=== PATIENT | female | born 1990 | race African-American/Black ===

== ENCOUNTER 2017-08-16 09:07 | Inpatient (IN) | payer OTHER ==
[~2017-08-16] VITALS: Ht 154.9 cm; Wt 81.2 kg
[~2017-08-16 09:07] MED LIST: COLACE100 MG PO; IBUPROFEN600 M1 PO; LIORESAL 10MG T10 MG PO; MEDROL4 M2 PO; MOTRIN 600 MG600 MG PO; PERCOCET 325 MG1 TA2 PO; PERCOCET 5-3251 EACH PO; REGLAN10 M1 PO; TRAMADOL50 MG PO; ZOFRAN4 M1 SL
[2017-08-16] MEDS ORDERED: PRENATAL TABLE1 EAC2 PO (09:47)
[2017-08-16] MEDS ORDERED: TUMS200 MG PO (09:49)
[2017-08-16] MEDS ORDERED: OMEPRAZOLE40 M1 PO (09:50)
--- NOTE | 2017-08-16 10:13 | History & Physical Pre-Op ---
General Information and HPI MD Statement: I have seen and personally examined MARTHA BOUCHER and documented this H&P. The patient is a 27 year old F who presented with a patient stated chief complaint of I want to have a baby []. History of Present Illness: 27-year-old 2 para 0 at 41 weeks gestation with an inducible cervix for induction of labor patient has tried to do self induction last week with some Castrol oil that was uneventful patient is highly motivated to have her baby estimated weight is 8 lbs. 3 oz. patient aware of the risks shoulder dystocia with induction and she would like to have a trial of labor Allergies/Medications Allergies: Coded Allergies: Penicillins (Intermediate, FACIAL SWELLING, RASH 03/21/16) tramadol (RASH 03/21/16) Home Med list Calcium Carbonate (TUMS) 200 MG CALCIUM (500 MG) TAB.CHEW 2 TAB PO 4XDP HEARTBURN (Reported) Omeprazole 40 MG CAPSULE.DR 1 CAP PO DAILY HEARTBURN (Reported) Vit No.130/Iron/FA ( Tablet) 27 MG IRON-800 MCG TABLET 1 TAB PO DAILY (Reported) Past History Medical History Neurological: migraine EENT: NONE Cardiovascular: NONE Respiratory: asthma Gastrointestinal: irritable bowel syndrome Hepatic: NONE Renal: NONE Musculoskeletal: CAT SCRATCH FEVER R ANKLE FX Psychiatric: NONE Endocrine: NONE Blood Disorders: NONE Cancer(s): NONE HAIRCUTTER/Reproductive: NONE Tetanus Vaccine: 09/26/15 Surgical History Pertinent Surgical History: non-contributory Past Family/Social History Psychosocial History Smoking Status: Former Smoker Review of Systems Review of Systems: Denies headache rupture of membranes GI disturbance shortness of breath visual changes otherwise negative review of systems Exam & Diagnostic Data Last 24 Hrs of Vital Signs/I&O Intake & Output 08/16 1600 08/16 0800 08/16 0000 Intake Total Output Total Balance Patient 179 lb Weight Physical Exam: Pleasant -Serbian female HEENT anicteric Lungs clear Abdomen soft estimated weight 8 pounds 2 cm 90% posterior vertex well applied extremities +2 edema negative reflexes Assessment/Plan Assessment/Plan: Assessment is a 41 week inducible cervix plan Pitocin patient aware of risks of induction pain management reviewed with patient As Ranked By This Provider Problem List: 1.
[2017-08-16 10:28] LABS: ABSOLUTE BASOPHIL COUNT 0 /CUMM (0.0-0.2); ABSOLUTE EOSINOPHIL COUNT 0.1 /CUMM (0.0-0.7); ABSOLUTE GRANULOCYTE CT 6.3 /CUMM (1.4-6.5); ABSOLUTE LYMPH COUNT 1.4 /CUMM (1.2-3.4); ABSOLUTE MONOCYTE COUNT 0.7 /CUMM (0.10-0.60); BASOPHIL % 0.4 % (0.0-2.0); EOSINOPHIL % 1.4 % (0-5); GRANULOCYTE % 73.6 % (42.2-75.2); HEMATOCRIT 33.2 % (37-47); MEAN CORPUSCULAR HGB 34.7 PG (27.0-31.0); MEAN CORPUSCULAR VOLUME 102.1 FL (81.0-99.0); PLATELET COUNT 276 /CUMM (130-400); RED BLOOD CELL CT 3.25 /CUMM (4.20-5.40); WHITE BLOOD CELL COUNT 8.6 /CUMM (4.8-10.8)
--- NOTE | 2017-08-16 17:28 | PN- Obstetrical ---
Subjective Subjective: NO COMPLAINTS COMFORTABLE ABD SOFT NT EXT -EDEMA Objective Last 24 Hrs of Vital Signs/I&O Intake & Output 08/16 1600 08/16 0800 08/16 0000 Intake Total Output Total Balance Patient 179 lb Weight Physical Exam: PE THIN IN NAD ABD SOFT NT Obstetric Exam Dilation (cm): 4 Effacement (%): 90 Station: 0 Membranes: AROM Fluid: clear Multiple Gestation? No Contractions: Q 3MINUTES Assessment/Plan Assessment/Plan ASSESS TERM PLAN OBSERVE FOR RESTART PITOCIN
--- NOTE | 2017-08-16 20:42 | Operative Report ---
Operative/Inv Procedure Report Surgery Date: 08/16/17 Name of Procedure: From a low flap transverse section via Pfannenstiel skin incision Pre-Operative Diagnosis: Post term arrest of dilatation Post-Operative Diagnosis: Contracted pelvis O P Estimated Blood Loss: 500 Surgeon/Gas Dispenser: Ofelia Medel MD and Dr. Ken Kim Anesthesia: block Operative/Procedure Note Note: Procedure note patient was taken the operating room placed supine position after adequate skin testing for anesthesia for surgery the abdomen was prepped and draped so fashion skin was checked once again found to be adequate for surgery 2 finger breadths of symptoms pubis the skin was cut carried down to rectus fascia which was cut in curvilinear fashion either direction peritoneal cavity was entered high into the abdomen at this point the low bladed Brewster was placed and lower and incision the visceral peritoneum of the uterus was dissected anteriorly bladder flap was developed in the lower uterine segment uterus is entered the back of knife dissected bluntly as well as sharply the infant was delivered over the abdominal wall the cord was reducible was clamped 2 cut and the infant was handed to the automatic punch press operator was waiting delivering to aid in resuscitation placenta was delivered manually noted to be intact was wiped clean with 2 wet dry laps uterus was injected with intramyometrial Pitocin for uterine contractility as well intravenous Pitocin was used to aid in uterine contractility patient tolerated this well. Uses oversewn running locking suture of 0 times to was imbricated interrupted [id number] hemostasis was apparent. Uses turned to abdominal cavity found to be hemostatic the abdomen was irrigated close amounts on sounds are clear the peritoneum was reapproximated 0 the fascia was reapproximated to continue sutures #1 skin was reapproximated thomas at the end the case the counts correct the urine was clear mother and infant transferred recovery room awake alert Findings: Viable male direct OP cord around neck times to reducible with hand presentation otherwise normal anatomy with contracted pelvis
[2017-08-17 03:20] VITALS: BP 122/72
[2017-08-17 08:58] LABS: ABSOLUTE BASOPHIL COUNT 0 /CUMM (0.0-0.2); ABSOLUTE EOSINOPHIL COUNT 0.1 /CUMM (0.0-0.7); ABSOLUTE LYMPH COUNT 1.1 /CUMM (1.2-3.4); ABSOLUTE MONOCYTE COUNT 0.7 /CUMM (0.10-0.60); EOSINOPHIL % 0.8 % (0-5); RED BLOOD CELL CT 2.68 /CUMM (4.20-5.40)
[2017-08-17 09:07] LABS: BASOPHIL % 0.4 % (0.0-2.0); GRANULOCYTE % 80.5 % (42.2-75.2); MEAN CORPUSCULAR HGB 34.3 PG (27.0-31.0); MEAN CORPUSCULAR HGB CONC 33.8 G/DL (33.0-37.0); MEAN CORPUSCULAR VOLUME 101.3 FL (81.0-99.0); MEAN PLATELET VOLUME 7.8 FL (7.4-10.4); PLATELET COUNT 217 /CUMM (130-400); RBC DISTRIBUTION WIDTH 13.8 % (11.5-14.5)
[2017-08-17 09:11] LABS: HEMATOCRIT 27.1 % (37-47)
--- NOTE | 2017-08-17 12:16 | PN- Post Delivery/GYN ---
Subjective Subjective: NO COMPLAINTS Objective Last 24 Hrs of Vital Signs/I&O Vital Signs Date Time Temp Pulse Resp B/P B/P Pulse O2 O2 Flow FiO2 Mean Ox Delivery Rate 08/17 0320 122/72 Physical Exam: PE PLEASANT BF IN NAD ABD SOFT DISTENTION DRESSING WITH DRAINAGE FUNDUS FIRM NT EXT +1 EDEMA -HOMANS Assessment/Plan Assessment/Plan ASSESS S/P C/S ANEMIA PLAN ADVANCE DIET AND AMBULATION
--- NOTE | 2017-08-18 09:06 | PN- Post Delivery/GYN ---
Subjective Subjective: NO COMPLAINTS Objective Last 24 Hrs of Vital Signs/I&O PER CHART Physical Exam: PE THIN BF IN NAD ABD SOFT NT FUNDUS FIRM NT INCISION CDI Assessment/Plan Assessment/Plan ASSESS S/P C/S PLAN CONT PPC
[2017-08-19] MEDS ORDERED: PERCOCET 5-3251 EACH PO (08:12)
[2017-08-19] MEDS ORDERED: IBUPROFEN800 M1 PO (08:12)
== END 2017-08-19 11:30 | DRG 540 ==
LOC: GNO 09:07
PROVIDERS: Specialist
PROC: 10D00Z1 Extraction of Products of Conception, Low, Open Approach (ICD-10-PCS; principal; 2017-08-16)
DX: O62.0 Primary inadequate contractions (principal); O69.81X0 Labor and delivery complicated by cord around neck, without compression, not applicable or unspecified; Z88.0 Allergy status to penicillin; Z88.5 Allergy status to narcotic agent; Z3A.41 41 weeks gestation of pregnancy; Z37.0 Single live birth
CPT/HCPCS: GNOS; 36415; 81001; 87086; J0131; J1200; J1580; J1650; J1885; J7120; Q2036

== ENCOUNTER → 2017-12-09 | Day surgery (SDC) | payer OTHER ==
[~2017-12-09] VITALS: Ht 154.9 cm; Wt 71.7 kg
[~2017-12-09] MED LIST changes: +IBUPROFEN800 M1 PO; +OMEPRAZOLE40 M1 PO; +PRENATAL TABLE1 EAC2 PO; +TUMS200 MG PO
--- NOTE | 2017-12-17 09:21 | Operative Report ---
Operative/Inv Procedure Report Surgery Date: 12/09/17 Name of Procedure: D&C hysteroscopy Pre-Operative Diagnosis: Menorrhagia Post-Operative Diagnosis: Same Estimated Blood Loss: scant Surgeon/Black Topper: Ofelia Medel MD Anesthesia: moderate sedation Operative/Procedure Note Note: Patient was taken to the operating room placed in dorsal supine position. After adequate anesthesia, patient was prepped and draped for surgery. Examination under anesthesia was performed. CO2 tenaculum was placed on the anterior lip of the cervix gentle downward traction was used. The cervix was dilated 29 Hegar to left insertion of the hysteroscope. Under direct visualization to hysteroscopy was performed using gas hysteroscope was removed and endocervical curettage was performed. And endometrial curettage was performed. All instruments removed from the vagina. The counts were correct the patient was awakened from anesthesia. And transported to recovery room awake and alert.
== END ==
LOC: STS 02:38
DX: N92.0 Excessive and frequent menstruation with regular cycle (principal); N72 Inflammatory disease of cervix uteri
CPT/HCPCS: 81025; 88305; J2250